=== PATIENT | male | born 1950 | race African-American/Black ===

== ENCOUNTER 2024-05-08 23:14 | Emergency (ER) | payer MEDICARE, OTHER ==
[~2024-05-08] VITALS: Ht 185.4 cm; Wt 73.0 kg
[~2024-05-08 23:14] MED LIST: APIX5TAB PO; ASPI-1160 PO; CALC667T8 PO; DICL100G58 TP; GABA-529 PO; LABE300T36 PO; LEVO25TA7 PO; LIP40 PO; NIFE-32 PO; PANT40TA51 PO
[2024-05-08 23:15] VITALS: BP 138/72; PULSE 67; RESP 18; TEMP 98.2; O2SAT 99
[2024-05-09 00:35] LABS: BASOPHILS % 0.7 % (0.0-2.0); EOSINOPHILS % 3.3 % (0.0-5.0); HEMOGLOBIN. 9.3 g/dL (14.0-18.0); LYMPHOCYTES % 16.5 % (20.0-50.0); MEAN CORPUSCULAR HEMOGLOBIN 32.3 pg (28.0-32.0); MEAN CORPUSCULAR HGB CONC 33.2 g/dL (31.0-37.0); MEAN CORPUSCULAR VOLUME 97.4 fL (80.0-94.0); MEAN PLATELET VOLUME 8.3 fl (7.4-10.4); MONOCYTES % 10.7 % (2.0-8.0); NEUTROPHILS % 68.8 % (40.0-76.0); PLATELET 130 x1000/uL (130-400); RED BLOOD CELL COUNT 2.87 mill/uL (4.7-6.1); WHITE BLOOD COUNT 9.4 x1000/uL (4.5-11.0)
[2024-05-09 00:40] LABS: CHLORIDE 101 mEq/L (98-107); SODIUM 139 mEq/L (136-145)
[2024-05-09 00:41] LABS: CALCIUM 9.4 mg/dL (8.7-10.4); CARBON DIOXIDE 26 mEq/L (21-32)
[2024-05-09 00:46] LABS: GLUCOSE 115 mg/dL (70-105); UREA NITROGEN BLOOD 11 mg/dL (9-23)
[2024-05-09 00:48] LABS: ALANINE AMINOTRANSFERASE 18 IU/L (10-49); ASPARTATE AMINOTRANSFERASE 29 IU/L (<34); BILIRUBIN TOTAL 0.3 mg/dL (0.1-1.0); PROTEIN TOTAL 6.8 g/dL (6.0-8.3)
[2024-05-09 01:56] LABS: CREATININE 4.3 mg/dL (0.6-1.3)
[2024-05-09 01:57] LABS: BILIRUBIN DIRECT < 0.1 mg/dL (<=3.0)
[2024-05-09] MEDS ORDERED: NA P133E4 RC (03:05)
[2024-05-09] MEDS ORDERED: SENN8.6T21 MT (03:05)
== END 2024-05-09 03:57 | disposition home or self-care (01) ==
LOC: ER 23:14
DX: K59.00 Constipation, unspecified (principal); I10 Essential (primary) hypertension; J45.909 Unspecified asthma, uncomplicated; Z99.2 Dependence on renal dialysis; Z95.1 Presence of aortocoronary bypass graft; Z79.899 Other long term (current) drug therapy; Z79.82 Long term (current) use of aspirin; Z79.01 Long term (current) use of anticoagulants
CPT/HCPCS: 36415; 80048; 80076; 85025; 99283